=== PATIENT | male | born 1960 | race Caucasian/White ===

== ENCOUNTER 2023-02-09 11:45 | Inpatient (IN) | payer MEDICAID, SELFPAY ==
[2023-02-09] VITALS (16 sets, daily range): BP systolic 112–172; BP diastolic 78–119; PULSE 88–119; RESP 17–24; TEMP 36.2–36.6; O2SAT 53–100; BMI 15.8; BMI 14.5
--- NOTE | 2023-02-09 12:01 | RAD_ITS ---
INDICATION: injury EXAMINATION/TECHNIQUE: X-RAY - LEFT XR Wrist Min 3 Views 3 VIEWS COMPARISON: No relevant prior comparison study available FINDINGS: SOFT TISSUES: No soft tissue swelling or gas. No radiopaque foreign body. BONES/JOINTS: No acute fracture or subluxation.. Normal alignment. Preservation of the joint space.. No sclerotic or destructive changes observed. RAD/Wrist min 3 Views IMPRESSION: No evidence of acute fracture. Electronically Signed: Harjit Liz MD at 13:46 EST ,
--- NOTE | 2023-02-09 12:01 | CT_ITS ---
INDICATION: trauma EXAMINATION: CT CERVICAL SPINE - CT Spine Cervical W/O Contrast Injection TECHNIQUE: Helically acquired images were obtained of the cervical spine. 2D reformatted images were reviewed. A radiation dose optimization technique was used for this scan. IV Contrast dosage and agent: None. RADIATION DOSAGE (If Supplied By Facility): CTDIvol = ( 13.76 ) mGy, DLP = ( 277.43 ) mGycm COMPARISON: No relevant prior comparison study available FINDINGS: VERTEBRAE: Limited examination due to significant artifacts due to patient''s positioning. Sagittal images are degraded. No evidence of acute compression fracture deformity. The posterior elements appear to be intact. Exaggerated lordosis of the cervical spine. Mild anterolisthesis of C4 over C5. Normal craniocervical junction and cervicothoracic junction. DISCS and SPINAL CANAL: Degenerative changes of the atlantoaxial joint. Narrowing of the disc spaces of C4-C5, C5-C6 and C6-C7. No critical stenosis. NECK SOFT TISSUES: No prevertebral soft tissue swelling. Atherosclerotic calcifications of the carotid arteries. LUNG APICES: No evidence of pneumothorax. CT/Spine Cervical without Contras IMPRESSION: 1. Limited examination due to motion and artifacts. 2. No evidence of acute fracture. 3. Multilevel degenerative changes. 4. If symptoms persist, MRI of the cervical spine or follow-up examination is recommended. Electronically Signed: Harjit Liz MD at 13:22 EST ,
--- NOTE | 2023-02-09 12:01 | RAD_ITS ---
INDICATION: Altered mental status EXAMINATION/TECHNIQUE: X-RAY - XR Chest 1 View COMPARISON: No relevant prior comparison study available FINDINGS: LINES/DEVICES: None. LUNGS: The lungs are hyperinflated with COPD changes. No focal infiltrate is seen. No evidence of pleural effusions. MEDIASTINUM AND CARDIOVASCULAR STRUCTURES: Cardiac silhouette not enlarged. Central airways and mediastinal contour are unremarkable. BONES AND SOFT TISSUES: No demonstrated acute osseous changes. RAD/Chest 1 View (Portable) IMPRESSION: 1. COPD changes. 2. No radiographic evidence of acute cardiopulmonary disease. Electronically Signed: Harjit Liz MD at 13:39 EST ,
--- NOTE | 2023-02-09 12:01 | RAD_ITS ---
INDICATION: injury EXAMINATION/TECHNIQUE: X-RAY - RIGHT XR Foot Min 3 Views 3 VIEWS COMPARISON: No relevant prior comparison study available FINDINGS: SOFT TISSUES: No soft tissue swelling or gas. No radiopaque foreign body. BONES/JOINTS: No acute fracture or subluxation.. Normal alignment. Hammertoes deformity of the second toe. No sclerotic or destructive changes observed. RAD/Foot min 3 Views IMPRESSION: No evidence of acute fracture. Electronically Signed: Harjit Liz MD at 13:41 EST ,
--- NOTE | 2023-02-09 12:01 | CT_ITS ---
INDICATION: Altered mental status. EXAMINATION: CT BRAIN - CT Head or Brain W/O Contrast Injection TECHNIQUE: Multiple axial images were obtained of the head without intravenous contrast. A radiation dose optimization technique was used for this scan. IV Contrast dosage and agent: None. RADIATION DOSAGE (If Supplied By Facility): CTDIvol = ( 44.99 ) mGy, DLP = ( 829.85 ) mGycm COMPARISON: No relevant prior comparison study available FINDINGS: BRAIN PARENCHYMA: No intra- or extra-axial hemorrhage. No evidence of acute infarct. No intracranial mass or mass effect. There is preservation of the jimenez/white matter interface. There are periventricular deep white matter changes likely due to chronic microvascular disease. Posterior fossa structures are unremarkable. Atherosclerotic calcifications of the cavernous internal carotid and vertebral arteries. CSF SPACES: Appropriate for age. No hydrocephalus. Basal cisterns are patent. CALVARIUM, SKULL BASE, PARANASAL SINUSES AND MASTOID AIR CELLS: Clear. No discrete lytic or blastic abnormalities. ORBITS: Both globes, extraocular muscles, optic nerves and retrobulbar fat appear unremarkable. CT/Brain/Head without Contrast IMPRESSION: 1. No acute intracranial process. 2. Chronic involutional changes of the brain. Electronically Signed: Harjit Liz MD at 13:10 EST ,
--- NOTE | 2023-02-09 12:01 | RAD_ITS ---
INDICATION: trauma EXAMINATION/TECHNIQUE: X-RAY - XR Pelvis 1 or 2 Views COMPARISON: No relevant prior comparison study available FINDINGS: PELVIC BONES: No displaced fracture, destructive or sclerotic lesions. Note that overlapping bowel shadows may however obscure fine detail. The right sacroiliac joint is obscured by overlying bowel gas. No widening of the pubic symphysis. HIPS: The articular structures are unremarkable. No displaced fracture seen in this frontal view. SOFT TISSUES: No soft tissue swelling or gas. RAD/Pelvis 1 or 2 Views IMPRESSION: Limited exam due to overlying bowel gas. No evidence of displaced pelvic or hip fracture. Electronically Signed: Harjit Liz MD at 13:45 EST ,
--- NOTE | 2023-02-09 12:02 | EKG12_ITS ---
Test Reason : Blood Pressure : / mmHG Vent. Rate : 118 BPM Atrial Rate : 118 BPM P-R Int : 098 ms QRS Dur : 068 ms QT Int : 338 ms P-R-T Axes : 091 089 -34 degrees QTc Int : 473 ms Sinus tachycardia with short OK with Premature supraventricular complexes and with occasional Prematu re ventricular complexes ST & T wave abnormality, consider inferior ischemia Abnormal ECG Confirmed by DANNY JOLLEY, MARIANA ([id number]), editor index JOHN HANNON ([id number]) on 02/10/2023 11:06:52 AM Referred By: Confirmed By:MARIANA DELGADO MD
--- NOTE | 2023-02-09 12:13 | EDS_ITS ---
HPI History of Present Illness Chief Complaint: General Illness Informant: EMS Narrative Narrative: 62-year-old male was brought to the emergency department by EMS. No family is with him and the patient cannot have a coherent conversation with me. Therefore initial history was provided solely by EMS. They tell me that the called EMS. They report that he is an alcoholic and the told them that he fell a couple weeks ago. She has been trying to give him alcohol as she is afraid he is going through withdrawals but he is unable to drink. They note that the patient is very cachectic and has some mottling. They gave thiamine and some IV fluids in route and note that he was combative and they also gave some Versed. The patient's arrived tells me that 2 years ago he retired. Since then he really has not been up and moving much. She states over the past couple weeks he is gone from drinking a 30 pack of beer every 2 days to just a couple beers a day and over the past several days no beer. He gave up smoking because it was too much effort for him to roll his own cigarettes. She moved the mattress to the floor because he kept falling when he tried to ambulate. He has not been eating much. She tells me that family was over on and the tried to get him to come to the hospital then but he refused. She does not understand why he is not eating or getting up and moving. PFSH PFSH Medical History ETOH abuse Allergy/AdvReac Type Severity Reaction Status Date / Time No Known Allergies Allergy Verified 02/09/23 11:52 Social History Smoking Status: Unknown if ever smoked ROS ROS ED Review of Systems ROS Unobtainable: due to mental status EXAM Physical Exam Const Vital Signs: 02/09/23 11:46 02/09/23 11:52 02/09/23 12:10 Temperature 98 F Temperature Source Temporal Pulse Rate 88 Respiratory Rate 18 Respiratory Effort Labored Agonal Head [place] Blood Pressure 135/78 H Blood Pressure Mean 97 Pulse Ox 94 53 Oxygen Delivery Method Room Air Room Air Oxygen Flow Rate (L/min) 02/09/23 12:15 02/09/23 12:35 02/09/23 13:11 Temperature Temperature Source Pulse Rate 118 H 119 H 115 H Respiratory Rate 18 17 24 H Respiratory Effort Blood Pressure 149/81 H 171/119 H 141/84 H Blood Pressure Mean 103 136 103 Pulse Ox 93 99 97 Oxygen Delivery Method Non-Rebreather Nasal Cannula Nasal Cannula Oxygen Flow Rate (L/min) 15 4 4 02/09/23 13:40 Temperature 98 F Temperature Source Temporal Pulse Rate 115 H Respiratory Rate 24 H Respiratory Effort Blood Pressure 172/102 H Blood Pressure Mean 125 Pulse Ox 100 Oxygen Delivery Method Nasal Cannula Oxygen Flow Rate (L/min) 4 Positive well developed and cachectic General Appearance ED: well developed and cachectic Nutritional Appearance: cachectic HEENT Reports normocephalic, head/scalp atraumatic and dry mucous membranes HEENT Narrative: Patient has purpleish lips and nose Mouth ED: Yes dry mucous membranes Mouth: dry mucous membranes Eyes PERRL and EOMs intact bilaterally Neck no lymphadenopathy, supple and no JVD Resp normal respiratory effort and clear to auscultation bilaterally Cardio regular rate, regular rhythm and no murmurs Rate: tachycardic GI normal to inspection, nondistended, normoactive bowel sounds and non-tender Palpation: soft Back/Spine no CVA tenderness and normal ROM Back/Spine Narrative: Kyphotic back Extremity Extremity Narrative: Patient has erythema and swelling of the left hand and wrist. There is a forearm skin tear. He reports tenderness to palpation. He has bilateral foot and ankle swelling. Bilateral feet are cold to the touch. They are bluish- purple in color and improved with elevation. I suspect chronic peripheral vascular disease. There is mild mottling of the skin from the thigh inferiorly. He complains of tenderness to the right heel. There are early pressure changes to the skin of the right greater trochanter. Right medial proximal thigh/buttock has a small 5 mm round ulceration. No surrounding erythema. Bilateral feet are cold to the touch Neuro oriented x3 and CN's II-XII intact bilaterally Sensorium / Orientation: alert Motor Exam: strength 5/5 throughout Psych mental status grossly normal Mood & Affect: Negative for depressed or tearful Skin no rashes or lesions noted and no wounds MDM MDM MDM Narrative Medical decision making narrative: Differential is extremely broad. Including but not limited to altered mental status from alcohol withdrawal, stroke, head trauma. Significant electrolyte abnormalities and dehydration, oncologic processes fractures rhabdomyolysis Patient is severely cachectic and appears malnourished. Surprisingly blood work appears much better than he does. White count 7.5 hemoglobin 14.6 and a platelet count of 227. BMP with a sodium of 132 and potassium 3.3. BUN 13 creatinine 0.39. Lactic acid is normal at 1.6 with a glucose of 86. AST of 46 ALT of 38. Total CK is 304. Alcohol is negative. Urinalysis shows no overt infection. My independent interpretation of the chest x-ray is COPD but no acute findings My independent interpretation of the single view of the pelvis is no acute fracture My independent interpretation of the plain films of the right foot is no acute fracture soft tissue swelling noted My independent interpretation of the plain films of the left wrist is no acute fracture CT of the brain and cervical spine showed no acute fracture or hemorrhage Patient did receive thiamine by EMS we administered folic acid and IV fluids. Due to tachycardia with a history of alcoholism and recent me stopping alcohol patient received Ativan which also assisted in getting labs and imaging. He is sleeping but remains tachycardic. Patient is severely cachectic/malnourished. He is unable to relay his needs in any meaningful form of communication. He is curled up in a ball. He has pressure changes on his skin. Plan will be admission. I would anticipate long-term placement. History & Record Review Discussion w/independent historian: EMS personnel and Family Lab Data Attestation: I reviewed the patient's lab results. Labs: Laboratory Results - last 24 hr 02/09/23 12:30 WBC 7.5 RBC 4.47 L Hgb 14.6 Hct 43.1 MCV 96.4 H MCH 32.7 H MCHC 33.9 RDW Std Deviation 46.5 H RDW Coeff of Vince 13.0 Plt Count 227 MPV 12.4 H Immature Gran % (Auto) 0.300 Neut % (Auto) 89.1 H Lymph % (Auto) 7.0 L [place] % (Auto) 3.5 Eos % (Auto) 0.0 Baso % (Auto) 0.1 Absolute Neuts (auto) 6.7 Absolute Lymphs (auto) 0.52 L Nucleated RBC % 0 Differential Comment SCANNED PT 12.4 INR 0.9 APTT 32.1 Sodium 132 L Potassium 3.3 L Chloride 92 L Carbon Dioxide 34.0 H Anion Gap 6 BUN 13 Creatinine 0.39 L Estim Creat Clear Calc 120.71 Est GFR (MDRD) Af Amer 285 Est GFR (MDRD) Non-Af 235 BUN/Creatinine Ratio 33.2 H Glucose 86 Lactic Acid 1.6 Calcium 7.6 L Magnesium 1.9 Total Bilirubin 0.40 Direct Bilirubin 0.15 AST 46 H ALT 38 Alkaline Phosphatase 110 Total Creatine Kinase 304 Troponin I High Sens 18 Total Protein 5.4 L Albumin 2.4 L Globulin 3.0 Lipase 46 Urine Color Yellow Urine Clarity Clear Urine pH 6.0 Ur Specific [place] 1.020 Urine Protein 15 H Urine Glucose (UA) Normal Urine Ketones Negative Urine Occult Blood 25 H Urine Nitrite Negative Urine Bilirubin Negative Urine Urobilinogen 1 H Ur Leukocyte Esterase Negative Urine RBC 0-5 SEEN Urine WBC 0 SEEN Ur Squamous Epith Cells 0 SEEN Urine Bacteria 0 SEEN Urine Mucus 0 SEEN Ethyl Alcohol < 3.0 Radiography Diagnostic Testing: Clinical Impression(s) from Imaging Studies Brain CT 02/09/23 12:01 IMPRESSION: 1. No acute intracranial process. 2. Chronic involutional changes of the brain. Electronically Signed: Harjit Liz MD at 13:10 EST Reading Location ID and State: [facility] / [place] Tel , Service support , Cervical Spine CT 02/09/23 12:01 IMPRESSION: 1. Limited examination due to motion and artifacts. 2. No evidence of acute fracture. 3. Multilevel degenerative changes. 4. If symptoms persist, MRI of the cervical spine or follow-up examination is recommended. Electronically Signed: Harjit Liz MD at 13:22 EST Reading Location ID and State: [facility] / [place] Tel , Service support , Chest X-Ray 02/09/23 12:01 IMPRESSION: 1. COPD changes. 2. No radiographic evidence of acute cardiopulmonary disease. Electronically Signed: Harjit Liz MD at 13:39 EST Reading Location ID and State: [facility] / [place] Tel , Service support , Foot X-Ray 02/09/23 12:01 IMPRESSION: No evidence of acute fracture. Electronically Signed: Harjit Liz MD at 13:41 EST , Pelvis X-Ray 02/09/23 12:01 IMPRESSION: Limited exam due to overlying bowel gas. No evidence of displaced pelvic or hip fracture. Electronically Signed: Harjit Liz MD at 13:45 EST , Wrist X-Ray 02/09/23 12:01 IMPRESSION: No evidence of acute fracture. Electronically Signed: Harjit Liz MD at 13:46 EST , EKG Initial EKG: Attestation: I personally reviewed and interpreted this EKG as follows: Comments: Sinus tachycardia with a ventricular rate of 118 bpm. poor quality precludes full interpretation Management Discussion w/another healthcare provider: Hospitalist Discharge Plan Dx/Rx/DC Orders Clinical Impression: Protein-calorie malnutrition, severe, Adult failure to thrive, Bedsores, Acute alteration in mental status, Alcoholism, Tachycardia Disposition Disposition: Acute Care [facility]
[2023-02-09] MEDS: Folic Acid 1 MG in 0.9% Normal Saline (50mL Bag) 50 ML 200 MG IV (12:31)
[2023-02-09] MEDS: 0.9% Normal Saline (1000mL) 1,000 ML 250 ML IV ×3 (12:31→21:51)
[2023-02-09] MEDS: LORazepam 2 MG/ML Syringe 1 MG IV (12:31)
[2023-02-09 12:41] LABS: Bacteria 0 SEEN /hpf (None Seen); Mucous, Urine 0 SEEN /hpf (<or=2+); Squamous Epithelial Cells - UA 0 SEEN /hpf (0-5); White Blood Cells 0 SEEN /hpf (0-5)
[2023-02-09 12:45] LABS: Color, Urine Yellow (Yellow); Glucose, Dipstick Normal (Normal); Ketone-Dipstick Negative (Negative); Leukocyte Esterase-Dipstick Negative /ul (Negative); Nitrite-Dipstick Negative (Negative); Occult Blood-Urine 25 /ul (Negative); Protein-Dipstick 15 mg/dl (Negative); Urine Bilirubin Dipstick Negative (Negative); Urine Clarity Clear (Clear); Urine Urobilinogen 1 mg/dl (Normal)
[2023-02-09 12:51] LABS: Absolute Lymphocyte Count 0.52 X10^3/uL (0.83-4.51); Absolute Neutrophil Count 6.7 X10^3/uL (2.0-7.7); Basophil# 0.01 X10^3/uL; Basophil% 0.1 % (0-1); Hematocrit 43.1 % (40-54); Hemoglobin 14.6 g/dL (13.0-16.5); Lymphocyte # 0.52 X10^3/ul (0.83-4.51); Mean Corp Hgb Conc 33.9 g/dL (32-36); Mean Corpuscular Hgb 32.7 pg (27.0-32.0); Mean Corpuscular Volume 96.4 fL (80-94); Mean Platelet Vol. 12.4 fl (6.2-12.0); Monocyte# 0.26 X10^3/uL; Monocyte% 3.5 % (0-10); NRBC Flagged by Analyzer 0 % (0-5); Neutrophil # 6.65 X10^3/uL (2.7-7.7); Neutrophil % 89.1 % (47-70); POSITIVE DIFFERENTIAL YES; Platelet Count 227 K/mm3 (150-450); RBC Distribution Width SD 46.5 fl (35.1-43.9); Red Blood Cells-Urine 0-5 SEEN /hpf (0-5); Red Blood Count 4.47 M/mm3 (4.6-6.2); White Blood Count 7.5 K/mm3 (4.4-11.0)
[2023-02-09 12:54] LABS: Differential Indicated SCAN CRITERIA MET
[2023-02-09 12:58] LABS: International Normalized Ratio 0.9; Prothrombin Time (Protime)PT. 12.4 SECONDS (11.7-14.9)
[2023-02-09 12:59] LABS: Partial Thromboplast Time 32.1 Seconds (24.1-36.2)
[2023-02-09 13:08] LABS: Alcohol, Blood (Medical)-Serum < 3.0 mg/dL
[2023-02-09 13:11] LABS: AST(SGOT) 46 U/L (15-37); Alanine Aminotransfer ALT/SGPT 38 U/L (16-61); Albumin, Serum 2.4 g/dL (3.2-5.0); Alkaline Phosphatase 110 U/L (45-117); Anion Gap 6 (5-15); BUN 13 mg/dL (7-18); BUN/Creat Ratio 33.2 RATIO (10-20); Bilirubin, Direct 0.15 mg/dL (0.00-0.30); CPK Total, Creatine Kinase 304 U/L (39-308); Calcium,Total 7.6 mg/dL (8.5-10.1); Chloride 92 mmol/L (98-107); Creatinine, Serum 0.39 mg/dL (0.70-1.30); EST Glomerular Filtration Rate 235 mL/min (>60); Est Glom Filt Rate - Afr Amer 285 mL/min (>60); Estimated Creatinine Clearance 120.71 ml/min; Glucose 86 mg/dL (74-106); Lipase 46 U/L (13-75); Magnesium 1.9 mg/dL (1.6-2.6); Potassium 3.3 mmol/L (3.5-5.1); Protein, Total 5.4 g/dL (6.4-8.2); Sodium Level 132 mmol/L (136-145); Troponin-I HS 18 pg/mL (3.0-78.0)
[2023-02-09 13:14] LABS: Lactic Acid 1.6 mmol/L (0.4-1.9)
[2023-02-09 13:31] LABS: Differential Comment SCANNED
--- NOTE | 2023-02-09 14:08 | PCM.HP.STD ---
HPI - General General Date of Admission: 02/09/23 Date of Service: 02/09/23 Chief Complaint: Severe cachexia, weakness, altered mental status HPI Narrative LAVON VILLAGOMEZ, is a 62 M who presented to [facility] ED on 02/09/2023 via EMS for worsening weakness and confusion at home. Patient seen at bedside in the ED, present. Patient is extremely cachectic appearing on exam. Was laying on his side in bed, very somnolent with snoring, not following commands but appears comfortable. Patient's is very pleasant, had extensive conversation with her at the bedside. 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 He was a heavy alcohol drinker for the last 40 years or so, would drink 20-30 beers daily after he retired and eat very little. He also would hardly get out of his chair or out of bed. He is very stubborn and resists any attempts at medical intervention. noticed that patient has been getting much thinner and progressively weaker over the last 6 months to year especially. It recently reached a point where he was falling often at home, and she put his mattress on the ground given his severe weakness. She states that he was able to eat some of his things getting dinner and his mental status was fairly normal at that time. However, since then he has become more altered and fatigued and she felt like it was finally time to call EMS to bring him in because he would not resist being brought to the hospital. states that patient has hardly drank any alcohol over the past few weeks because of his weakness. He also has an extensive smoking history but has been too weak to smoke cigarettes recently as well. [facility] Medical History ETOH abuse Allergy/AdvReac Type Severity Reaction Status Date / Time No Known Allergies Allergy Verified 02/09/23 11:52 Social History Smoking Status: Unknown if ever smoked ROS Review of Systems ROS Unobtainable: due to mental status Vital Signs Vital Signs Vital Signs: 02/09/23 11:46 02/09/23 11:52 02/09/23 12:10 Temperature 98 F Temperature Source Temporal Pulse Rate 88 Respiratory Rate 18 Respiratory Effort Labored Agonal Head [place] Blood Pressure 135/78 H Blood Pressure Mean 97 Pulse Ox 94 53 Oxygen Delivery Method Room Air Room Air Oxygen Flow Rate (L/min) 02/09/23 12:15 02/09/23 12:35 02/09/23 13:11 Temperature Temperature Source Pulse Rate 118 H 119 H 115 H Respiratory Rate 18 17 24 H Respiratory Effort Blood Pressure 149/81 H 171/119 H 141/84 H Blood Pressure Mean 103 136 103 Pulse Ox 93 99 97 Oxygen Delivery Method Non-Rebreather Nasal Cannula Nasal Cannula Oxygen Flow Rate (L/min) 15 4 4 02/09/23 13:40 Temperature 98 F Temperature Source Temporal Pulse Rate 115 H Respiratory Rate 24 H Respiratory Effort Blood Pressure 172/102 H Blood Pressure Mean 125 Pulse Ox 100 Oxygen Delivery Method Nasal Cannula Oxygen Flow Rate (L/min) 4 Weight Weight: 44.6 kg Body Mass Index (BMI) 15.8 Physical Exam Const Constitutional Narrative: Extremely cachectic appearing, somnolent, not following commands. HEENT normocephalic, head/scalp atraumatic, hearing grossly normal bilaterally, nasal mucous membranes and turbinates normal and moist oral mucous membranes Lymph Lymphatic: no lymphadenopathy noted Resp Resp Narrative: Mildly decreased breath sounds throughout bilaterally. Increased work of breathing noted on 5 L nasal cannula, oxygen saturations in the low 90s. No wheezing or crackles noted. Cardio no murmurs and peripheral pulses 2+ throughout Cardio Narrative: Sinus tachycardia. GI normal to inspection, nondistended, normoactive bowel sounds, soft to palpation, non-tender and non-distended Extremity Extremity Narrative: +3-4 pitting edema in left lower extremity up to the mid thigh, right lower extremity appears grossly normal. Skin Skin Narrative: Severe left hand erythema. Bruises throughout arms and legs in various stages of healing. Results Lab / Micro Data 02/09/23 12:30 02/09/23 12:30 Labs: Laboratory Results - last 24 hr 02/09/23 12:30: WBC 7.5, RBC 4.47 L, Hgb 14.6, Hct 43.1, MCV 96.4 H, MCH 32.7 H, MCHC 33.9, RDW Std Deviation 46.5 H, RDW Coeff of Vince 13.0, Plt Count 227, MPV 12.4 H, Immature Gran % (Auto) 0.300, Neut % (Auto) 89.1 H, Lymph % (Auto) 7.0 L, [place] % (Auto) 3.5, Eos % (Auto) 0.0, Baso % (Auto) 0.1, Absolute Neuts (auto) 6.7, Absolute Lymphs (auto) 0.52 L, Nucleated RBC % 0, Differential Comment SCANNED, PT 12.4, INR 0.9, APTT 32.1, Sodium 132 L, Potassium 3.3 L, Chloride 92 L, Carbon Dioxide 34.0 H, Anion Gap 6, BUN 13, Creatinine 0.39 L, Estim Creat Clear Calc 120.71, Est GFR (MDRD) Af Amer 285, Est GFR (MDRD) Non-Af 235, BUN/Creatinine Ratio 33.2 H, Glucose 86, Lactic Acid 1.6, Calcium 7.6 L, Magnesium 1.9, Total Bilirubin 0.40, Direct Bilirubin 0.15, AST 46 H, ALT 38, Alkaline Phosphatase 110, Total Creatine Kinase 304, Troponin I High Sens 18, Total Protein 5.4 L, Albumin 2.4 L, Globulin 3.0, Lipase 46, Urine Color Yellow, Urine Clarity Clear, Urine pH 6.0, Ur Specific [place] 1.020, Urine Protein 15 H, Urine Glucose (UA) Normal, Urine Ketones Negative, Urine Occult Blood 25 H, Urine Nitrite Negative, Urine Bilirubin Negative, Urine Urobilinogen 1 H, Ur Leukocyte Esterase Negative, Urine RBC 0-5 SEEN, Urine WBC 0 SEEN, Ur Squamous Epith Cells 0 SEEN, Urine Bacteria 0 SEEN, Urine Mucus 0 SEEN, Ethyl Alcohol < 3.0 Imagaing Radiology Impression Brain CT 02/09/23 12:01 IMPRESSION: 1. No acute intracranial process. 2. Chronic involutional changes of the brain. Electronically Signed: Harjit Liz MD at 13:10 EST , Cervical Spine CT 02/09/23 12:01 IMPRESSION: 1. Limited examination due to motion and artifacts. 2. No evidence of acute fracture. 3. Multilevel degenerative changes. 4. If symptoms persist, MRI of the cervical spine or follow-up examination is recommended. Electronically Signed: Harjit Liz MD at 13:22 EST , Chest X-Ray 02/09/23 12:01 IMPRESSION: 1. COPD changes. 2. No radiographic evidence of acute cardiopulmonary disease. Electronically Signed: Harjit Liz MD at 13:39 EST , Foot X-Ray 02/09/23 12:01 IMPRESSION: No evidence of acute fracture. Electronically Signed: Harjit Liz MD at 13:41 EST , Pelvis X-Ray 02/09/23 12:01 IMPRESSION: Limited exam due to overlying bowel gas. No evidence of displaced pelvic or hip fracture. Electronically Signed: Harjit Liz MD at 13:45 EST , Wrist X-Ray 02/09/23 12:01 IMPRESSION: No evidence of acute fracture. Electronically Signed: Harjit Liz MD at 13:46 EST , Assessment & Plan Assessment/Plan (1) Adult failure to thrive: (2) Acute alteration in mental status: PLAN: Plan Patient is a 62-year-old male who presented to [facility] ED on 02/09/2023 via EMS with altered mental status and worsening weakness. 1. Severe cachexia and malnourishment, debility BMI 14.5 on admit. Patient appears severely cachectic and malnourished, is extremely thin and chronically ill-appearing. Likely multifactorial from very poor self-care, poor p.o. intake with previous alcohol abuse. Albumin 2.0, mild hyponatremia and hypokalemia as noted below, otherwise labs surprisingly are fairly benign. CT chest/abdomen/pelvis with IV contrast on admit shows suspected pneumonia and fatty liver disease as noted below, no overt findings consistent with malignancy. ? Admit under inpatient status to [facility]. Palliative care/hospice consulted. Nutrition consulted. PT/OT/case management consulted. Follow-up a.m. labs. 2. Acute metabolic encephalopathy Unclear etiology. Initial concern was for alcohol withdrawal, however per patient has hardly drank alcohol over the last 1 to 2 weeks. Was given Versed by EMS and Ativan in the ED, has been very somnolent since then. CT head negative. No concerning lab findings. ? Monitor closely. Avoid sedating medications. No further labs or imaging workup at this time. 3. Acute hypoxia, history of COPD, left lower extremity swelling Patient with new hypoxia requiring up to 12 L nasal cannula, mildly increased respiratory rate, sinus tachycardia, and fairly significant left lower extremity swelling on admit. PE ruled out on CTA chest. CT chest did show if symptoms changes with a lingular consolidation consistent with pneumonia. Bicarb 34 on admit with no anion gap noted, presume patient is a chronic retainer with history of COPD. WBC count normal, patient afebrile to this point. ? Will treat empirically for pneumonia with ceftriaxone and azithromycin. Sputum culture, respiratory PCR panel ordered. Venous duplex ultrasound of left lower extremity ordered to rule out DVT. Follow-up a.m. labs. Wean supplemental oxygen as able. 4. Hyponatremia Sodium 132 on admit. Likely due to poor p.o. intake. No baseline available. Very low concern that hyponatremia is contributing to patient's altered mentation. ? Monitor sodium daily. 5. Hypokalemia ? Potassium 3.3 on admit. Likely due to poor p.o. intake versus GI losses. Replete as needed. 6. History of alcohol abuse, hepatic steatosis reports history of heavy drinking for over [address] abdomen pelvis on admit shows enlarged fatty infiltrated liver. Liver enzymes essentially benign, INR 0.9. Very low concern for alcohol withdrawal as noted above. ? No need to monitor LFTs further. 7. History of cigarette smoking ? Extensive smoking history per patient's . Has smoked very little recently due to his medical state. No need for nicotine replacement therapy at this time. DVT prophylaxis: Lovenox CODE STATUS: DNR CCA, DO NOT INTUBATE Expected disposition: TBD Total clinical time spent by myself addressing the patient's medical issues, reviewing all the data, and collaborating with patient's care team: 75 minutes. Charges/Coding Visit Charges Inpatient E&M: 92030 Init Hosp L3
--- NOTE | 2023-02-09 15:12 | EKG12_ITS ---
Test Reason : FIB/FLUTTER Blood Pressure : / mmHG Vent. Rate : 104 BPM Atrial Rate : 104 BPM P-R Int : 116 ms QRS Dur : 080 ms QT Int : 358 ms P-R-T Axes : 083 090 028 degrees QTc Int : 470 ms Sinus tachycardia Rightward axis Nonspecific T wave abnormality Abnormal ECG When compared with ECG of 09-FEB-2023 12:24, MANUAL COMPARISON REQUIRED, DATA IS UNCONFIRMED Confirmed by DANNY JOLLEY, MARIANA ([id number]), publication editor GAGAN MANRIQUEZ ([id number]) on 02/11/2023 9:25:10 AM Referred By: AMAIRANI Confirmed By:MARIANA DELGADO MD
--- NOTE | 2023-02-09 15:47 | NURSING ---
History was completed with the answering questions.
[2023-02-09] MEDS: 0.9% Saline Lock 10 ML Syringe IV (16:02)
--- NOTE | 2023-02-09 18:19 | CT_ITS ---
STUDY: CTA CHEST REASON FOR EXAM: Male, 62 years old. Altered mental status, fall 2 weeks ago RADIATION DOSAGE (If Supplied By Facility): CTDIvol = ( 10.65 ) mGy, DLP = ( 593.85 ) mGycm TECHNIQUE: The examination was performed with the intravenous administration of 100mL Isovue-370. Post-processing of the angiographic images was performed, with multiplanar reformation and 3D reconstruction. Individualized dose optimization techniques were used for this CT. COMPARISON: None. FINDINGS: Normal enhancement of the main pulmonary artery and right and left pulmonary arteries. Normal enhancement of the bilateral peripheral pulmonary arteries. There is no demonstrated pulmonary embolism. 3.3 cm ectasia ascending aorta. There is no demonstrated aortic dissection. Normal heart and pericardium. Normal mediastinum. Normal hilar regions. Marked hyperinflation with diffuse emphysematous changes. Small consolidation inferior lingula. No pleural effusions. Normal chest wall structures. No acute or aggressive osseous abnormality. Upper abdominal ascites. CT/CTA Chest W/WO Contrast IMPRESSION: Normal CTA chest examination, without a demonstrated pulmonary embolism or arterial dissection. Emphysematous changes with lingular consolidation consistent with pneumonia. Recommend short-term follow-up to complete resolution. Ascites. Electronically Signed: Tone Brennan MD at 20:39 EST ,
--- NOTE | 2023-02-09 18:19 | CT_ITS ---
STUDY: CT ABDOMEN AND PELVIS WITH CONTRAST REASON FOR EXAM: Male, 62 years old. r/o intraabdominal pathology RADIATION DOSAGE (If Supplied By Facility): CTDIvol = ( 10.65 ) mGy, DLP = ( 593.85 ) mGycm TECHNIQUE: Transaxial images were obtained from the dome of the diaphragm to the symphysis pubis without oral contrast. IV 100mL Isovue-370 was administered. Sagittal and coronal images were reconstructed. Individualized dose optimization techniques were used for this CT. COMPARISON: None. FINDINGS: Small spiculated nodular density in the lingula of uncertain etiology possibly neoplastic.. There is also mild atelectasis at the left base. The visualized portions of the heart are within normal limits. Liver is diffusely enlarged and fatty infiltrated without mass or bile duct dilatation. Contracted thick-walled gallbladder without calcified stones possibly physiologic.. Normal spleen. Normal pancreas. Normal bilateral adrenal glands. Normal right kidney. Normal left kidney. Examination of the bowel is limited due to lack of utilization of oral contrast and paucity of intraperitoneal fat Normal visualized stomach. No evidence for small bowel obstruction however there appear to be multiple loops of bowel demonstrating thickening of folds consistent with nonspecific enteritis.. Normal colon. No evidence for acute appendicitis Atherosclerotic changes of the aorta without evidence for aneurysm. Normal inferior vena cava. Normal retroperitoneum. There is diffuse mesenteric edema and edematous changes in the subcutaneous fat consistent with nonspecific anasarca. There is air seen within the bladder due to indwelling Godoy catheter placement Normal abdominal wall. Lumbar spine demonstrates scoliosis and severe degenerative changes. CT/Abdomen/Pelvis W IV Cont ONLY IMPRESSION: Enlarged fatty infiltrated liver. Findings which may be consistent with nonspecific enteritis No evidence for small bowel obstruction or other acute abnormality.. Incidental finding of spiculated nodular density in the lingula of uncertain etiology. Cannot exclude neoplastic lesion. Dedicated CT of the chest recommended for further evaluation Electronically Signed: Moise Blas MD at 20:33 EST ,
--- NOTE | 2023-02-09 20:16 | NURSING ---
Hospice nurse here to meet with . this rn attempted to call . The message said the number is no longer working or has been disconnected.
--- NOTE | 2023-02-09 20:35 | NURSING ---
family did not show up for the hospice meeting. phone number not working. Dispatch called and will make a visit to have family call in or come to hospice
--- NOTE | 2023-02-09 21:30 | NURSING ---
called in said she didnt know about the meeting. chandrika the said she took tylenol pm and will not be able to come in. Pt gave us a new phone number [phone]. registration contacted to change number
[2023-02-09] MEDS: Ceftriaxone 1 GM/50 ML BAG IV (21:52)
[2023-02-09] MEDS: Azithromycin 500 MG in Dextrose 5%-Water (250mL Bag) 250 ML 250 MG IV (22:42)
[2023-02-10] VITALS (11 sets, daily range): BP systolic 96–142; BP diastolic 62–96; PULSE 75–97; RESP 18–22; TEMP 36.2–37.2; O2SAT 95–100
[2023-02-10] MEDS: 0.9% Normal Saline (1000mL) 1,000 ML 250 ML IV ×3 (03:20→10:26)
[2023-02-10] MEDS: Enoxaparin 40 MG/0.4 ML Syringe SC (10:25)
[2023-02-10] MEDS: 0.9% Saline Lock 10 ML Syringe IV (10:26)
--- NOTE | 2023-02-10 10:59 | CASEMGMT ---
Social Work SW?to room to meet with patient and family for initial transition planning/care coordination?assessment.?Pt sleeping in bed and not arousing. Family requesting to meet outside of pt's room. SW?introduced self and role at [facility].? Care providers, pharmacy, and demographics verified. PCP: Pt's reports in the 45 years that they have been , pt has never seen a physician Specialists: Pt saw a chiropractor a few times through the years but not recently Preferred Pharmacy: pt takes no medications and has no pharmacy preference Insurance: [facility] Prescription Benefit:? yes Living Will/HPOA:? no LNOK: Yany Doan. Brother Nick Doan. Son lives in the other side of the house (apartment) Living Arrangements: Pt lives in a one story home with 3 steps to enter. Pt retired 3 years ago and at that time pt choose to do nothing. Pt stays in home and sits in the chair and watches TV. Pt had been able to care for himself but for the last 2 months pt's assisted with ADLS. Pt completes all IADLS. Transportation:?Pt let his drivers license in October and has no ambition to drive any longer. can provide transportation DME: ? none HHC/SNF: none Mental Health: SW inquired about depression or mental health concerns. Pt with no diagnosis and states pt have never been willing to talk about his feelings so uncertain if he is depressed. Pt's does state that he will go for periods of not talking to her so is wondering if pt not talking to doctors or nurses while here may be behavioral. PLAN: Pt and family are meeting with hospice today at 1130. Pts feels she will be able to take pt home and provide needed care. Per pt's , pt is unwilling to have medical care and would be unwilling to go to a facility. Physcian updated. Emotional support provided to pt . SW will await outcome of hospice meeting. HI Mcgraw
--- NOTE | 2023-02-10 11:53 | CHAPLAIN ---
Type of Pastoral Visit ___ Initial Visit ___ Follow-up Visit ___ On-call Visit ___ General Patient Visit ___ Spiritual Assessment ___ Family Conference ___ Bereavement ___ Rapid Response ___ Code Blue ___ Other (describe below) Pastoral Care Referral From ___ Patient ___ Family ___ Nurse ___ Physician ___ Marble Polisher Hand ___ Shake Splitter ___ Other (describe below) Sacrament/Intervention ___ Active listening ___ Anointing ___ Anglican ___ Bereavement ___ Communion ___ Arlene exploration ___ ___ Life review ___ Prayer ___ Reconciliation ___ Sacrament of Sick ___ Supportive presence ___ Wedding ___ Other (describe below) Pastoral Comments patient is curled up in bed and sleeping soundly; family members are not in the room although coats, belongings, and food are in the room; left a calling card
--- NOTE | 2023-02-10 13:13 | CASEMGMT ---
Social Work SW spoke with Coco from [facility]. Coco met with pt and spouse. Pt did not interact with Coco. signed papers for hospice services. DME will need set up in the home. Plan is for home tomorrow with hospice services. HI Mcgraw
--- NOTE | 2023-02-10 15:28 | PN_ITS ---
Subjective Subjective Patient seen and examined. He was admitted with a complaint of severe weakness, cachexia and confusion. 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 Since long-term he has been somewhat stated at home doing nothing and that gradually lost weight. said he drank about 20-30 beers daily. Ongoing for about 2 weeks prior to this admission. He has been getting progressively weak and the is unable to take care of him. He had become more confused so she brought him into the hospital. Patient is very weak and cachectic. He is not really communicative. Unable to do review of systems as he is not really communicating with me. Family has set up a meeting with hospice this afternoon. He has remained hemodynamically sta ble. Objective Data Objective Data Vital Signs: Vital Signs Temp Pulse Resp BP Pulse Ox O2 Del Method O2 Flow Rate 97.3 F L 85 20 H 96/62 99 Nasal Cannula 2 02/10/23 15:28 02/10/23 15:28 02/10/23 15:28 02/10/23 15:28 02/10/23 15:28 02/10/23 15:28 02/10/23 15:28 FiO2 40 02/09/23 23:53 Oxygen Flow Rate (L/min) 2 Oxygen Delivery Method Nasal Cannula Weight: 89 lb 15.178 oz Body Mass Index (BMI) 14.5 Intake & Output: Intake and Output for Last 24 Hours 02/08/23 02/09/23 02/10/23 23:59 23:59 23:59 Intake Total 2367.7 / 2367.7 3145.84 / 3145.84 Output Total 400 / 400 200 / 200 Balance 1967.7 / 1967.7 2945.84 / 2945.84 Medical Nutrition Assessment Dietitian: Malnutrition Criteria Met Start: 02/10/23 13:39 Freq: Status: Active Protocol: Document 02/10/23 13:39 AG (Rec: 02/10/23 13:39 AG Desktop) Nutrition Malnutrition Evidence of Malnutrition Exists Yes Malnutrition (severe): Chronic Evidenced By Suboptimal Energy Intake ( Severe),Weight Loss (Severe), Physical Changes (Severe) Clinical Problem Chronic Disease or Condition Related Malnutrition Etiology severe, chronic malnutrition related to inadequate energy intake Signs/Symptoms as evidenced by unintentional 31% wt loss, estimated PO intake meeting <75 % of estimated energy needs > 3 months, severe muscle wasting/ fat loss evident per physical exam in orbital, clavicle, and acromion areas, BMI 14.5 Status Active Problem Recommendation Dietitian Recommendations/Changes regular diet as tolerated Lab / Micro Data 02/09/23 12:30 02/09/23 12:30 Radiography Diagnostic Testing: Radiology Impression Abdomen/Pelvis CT 02/09/23 18:19 IMPRESSION: Enlarged fatty infiltrated liver. Findings which may be consistent with nonspecific enteritis No evidence for small bowel obstruction or other acute abnormality.. Incidental finding of spiculated nodular density in the lingula of uncertain etiology. Cannot exclude neoplastic lesion. Dedicated CT of the chest recommended for further evaluation Electronically Signed: Moise Blas MD at 20:33 EST , Chest CTA 02/09/23 18:19 IMPRESSION: Normal CTA chest examination, without a demonstrated pulmonary embolism or arterial dissection. Emphysematous changes with lingular consolidation consistent with pneumonia. Recommend short-term follow-up to complete resolution. Ascites. Electronically Signed: Tone Brennan MD at 20:39 EST , Physical Exam Const Constitutional Narrative: patient very frail, weak, cachectic, not communicative. HEENT normocephalic Mouth: dry mucous membranes Eyes PERRL and EOMs intact bilaterally Neck no lymphadenopathy and supple Lymph Lymphatic: no lymphadenopathy noted Resp Resp Narrative: diminished breath sounds bibasally, no wheezes or crackles. On room air. Cardio regular rate, regular rhythm, S1 normal heart sound and S2 normal heart sound GI normal to inspection, nondistended, normoactive bowel sounds, soft to palpation, non-tender and non-distended Extremity Extremity Narrative: LLE erythematous, edematous, seeping. Bilateral UE erythematous and seeping also. Skin Skin Narrative: erythematous on RLE and upper extremities. Neuro CN's II-XII intact bilaterally and no focal motor deficits Neuro Narrative: very frail, cachectic and weak. Motor Exam: general weakness Assessment & Plan Assessment/Plan (1) Acute alteration in mental status: (2) Adult failure to thrive: (3) Protein-calorie malnutrition, severe: PLAN: Plan #Debility with failure to thrive * Patient severely malnourished. BMI was 2014.5. This is likely multifactorial from his chronic alcohol abuse and general poor health. * CT of the chest abdomen and pelvis with contrast was concerning for pneumonia with fatty liver disease. * said he had not drank for about 2 weeks prior to this admission. Usually he drinks about a 20-30 beers a day. * CT of the brain showed no acute intracranial pathology. * Family opted for hospice evaluation. Hospice reviewed patient today he is to be discharged home with hospice tomorrow. #Hypoxia * Patient requiring 6 L of oxygen. He does have a history of COPD and chest imaging was concerning for pneumonia. * Being treated empirically for pneumonia on IV ceftriaxone and azithromycin. Duplex of the left lower extremity showed no evidence of DVT. * Continue antibiotics for now. Being discharged home with hospice tomorrow. #Hyponatremia and hypokalemia: Patient gently hydrated with IV fluids. Sodium was 130 on admission. Potassium was 3.3 and this has been replaced. #History of chronic alcohol abuse with fatty liver * Patient drank about 30 cans of beer daily for [address] abdomen and pelvis showed enlarged fatty liver. * Last drink was about 2 weeks prior to admission so low risk for acute alcohol withdrawal. * Will monitor. #History of nicotine dependence: Counseled to quit. states he has not smoked recently because he has been deteriorating. DVT prophylaxis: lovenox. Disposition: To be discharged home with home hospice tomorrow. Charges/Coding Visit Charges Inpatient E&M: 61496 Subs Hosp L3
[2023-02-10] MEDS: Ceftriaxone 1 GM/50 ML BAG IV (22:02)
[2023-02-10] MEDS: Azithromycin 500 MG in Dextrose 5%-Water (250mL Bag) 250 ML 250 MG IV (22:44)
[2023-02-11] VITALS (8 sets, daily range): BP systolic 112–117; BP diastolic 64–68; PULSE 66–67; RESP 18; TEMP 36.2–36.6; O2SAT 83–100
[2023-02-11] MEDS: Enoxaparin 40 MG/0.4 ML Syringe SC (09:18)
--- NOTE | 2023-02-11 09:23 | NURSING ---
pt refused to let this nurse clean his mouth that had dried crusted food to his lower lip. He also refused this nurse to help blow his nose as there is mod amt of snot sitting in his nares. spo2 100% on 3L. This RN weaned him down to 2L then 1L and he was 100% on both of those. Spo2 is 91% at present on RA.
--- NOTE | 2023-02-11 11:37 | DCINST_ITS ---
Discharge Instructions Diet Discharge Diet: No restrictions Activity Discharge Activity: Return to Normal Activity Weight Bearing Status: Weight bearing as tolerated Dressing / Incision Call your doctor if you observe: Fever of 101 or Higher, Shortness of breath, Dizziness, Swelling in the ankles, Chest pain and Increased palpitations (irregular heartbeat) Follow Up Care Test Results: Test results from this visit will be discussed in further detail at your follow- up appointment, if applicable. Discharge Plan Admission Admit Date/Time: 02/09/23 14:41 Primary Reason for Your Visit: severe malnutrition, debility and failure to thrive Attending Provider: Sharona Patten Primary Care Provider: Care Physician,No Primary Consulting Providers: Adolfo Lopez; Carolyn Winston; Caridad Orozco; Larissa Louie [employer] ARCHITECT; Joni Turner Discharge Orders/Prescriptions Referrals / Follow Up: Care Physician,No Primary [Primary Care Provider] - NOT,DEFINED [Non-Staff] - Disposition Disposition (needs filled in before D/C Order can be placed): Hospice in Home
--- NOTE | 2023-02-11 11:38 | DS.PCM_ITS ---
Providers Date of Admission: 02/09/23 Date of Discharge: 02/11/23 Primary Care Physician: Joi Primary Care Phys Consultations 02/09/23 15:55 Consult: Hospice / Palliative Care Routine Consulting Provider: [facility] Reason for Consult: very severe cachexia EMERGENT Consult: No MD Notified: Yes Date Notified: 02/09/23 Time Notified: 17:02 Method of Notification: Answering Service Reason For Visit: ALATERED MENTAL STATUS, SEVERE CACHEXIA Diagnosis Discharge Diagnosis (1) Acute alteration in mental status: Status: Acute Code(s): R41.82 - Altered mental status, unspecified (2) Adult failure to thrive: Status: Acute Code(s): R62.7 - Adult failure to thrive (3) Protein-calorie malnutrition, severe: Status: Acute Code(s): E43 - Unspecified severe protein-calorie malnutrition Plan #Debility with failure to thrive * Patient severely malnourished. BMI was 2014.5. This is likely multifactorial from his chronic alcohol abuse and general poor health. * CT of the chest abdomen and pelvis with contrast was concerning for pneumonia with fatty liver disease. * said he had not drank for about 2 weeks prior to this admission. Usually he drinks about a 20-30 beers a day. * CT of the brain showed no acute intracranial pathology. * Family opted for hospice evaluation. Hospice reviewed patient today he is to be discharged home with hospice tomorrow. #Hypoxia * Patient requiring 6 L of oxygen. He does have a history of COPD and chest imaging was concerning for pneumonia. * Being treated empirically for pneumonia on IV ceftriaxone and azithromycin. Duplex of the left lower extremity showed no evidence of DVT. * Continue antibiotics for now. Being discharged home with hospice tomorrow. #Hyponatremia and hypokalemia: Patient gently hydrated with IV fluids. Sodium was 130 on admission. Potassium was 3.3 and this has been replaced. #History of chronic alcohol abuse with fatty liver * Patient drank about 30 cans of beer daily for [address] abdomen and pelvis showed enlarged fatty liver. * Last drink was about 2 weeks prior to admission so low risk for acute alcohol withdrawal. * Will monitor. #History of nicotine dependence: Counseled to quit. states he has not smoked recently because he has been deteriorating. DVT prophylaxis: lovenox. Disposition: To be discharged home with home hospice tomorrow. Hospital Course Operations None Procedures None Summary of Care Provided Minutes Spent on Discharge: 55 Hospital Course: Patient is a 62-year-old male with a past medical history as outlined was admitted via the ED on 02/09/2023 for worsening weakness and debility at home. 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 said he had not been receptive to seeking medical treatment. He had been getting thin and progressively weaker over the last year to the point where the patient was falling at home and was very debilitated. was unable to care for him so she brought him into the ED as he was becoming more weak and confused. said he had not drank any alcohol over the past few weeks due to his severe weakness. Was admitted and managed for severe debility and weakness as well as severe protein calorie malnutrition. Pelvic x-ray showed no evidence of fractures. Family requested hospice evaluation. Hospice evaluated patient and family opted to take patient home on home hospice. His CODE STATUS was changed to DNR CC. Patient was discharged home on home hospice on 02/11/2023. Patient was seen and examined prior to discharge. Patient remained very frail and weak. He had no active complaints. Review of systems otherwise negative. Physical Exam Const alert Constitutional Narrative: patient very frail, weak, cachectic, not communicative. Nutritional Appearance: cachectic HEENT normocephalic, head/scalp atraumatic, hearing grossly normal bilaterally, nasal mucous membranes and turbinates normal and moist oral mucous membranes Eyes PERRL and EOMs intact bilaterally Neck no lymphadenopathy and supple Lymph Lymphatic: no lymphadenopathy noted Resp Resp Narrative: diminished breath sounds bibasally, no wheezes or crackles. On room air. Cardio regular rate, regular rhythm, S1 normal heart sound, S2 normal heart sound, no murmurs and peripheral pulses 2+ throughout GI normal to inspection, nondistended, normoactive bowel sounds, soft to palpation, non-tender and non-distended Extremity Extremity Narrative: LLE erythematous, edematous, seeping. Bilateral UE erythematous and seeping also. Skin Skin Narrative: erythema on RLE and upper extremities. Neuro CN's II-XII intact bilaterally and no focal motor deficits Neuro Narrative: very frail, cachectic and weak. Motor Exam: general weakness Medical Records Data Medical Nutrition Assessment Dietitian: Malnutrition Criteria Met Start: 02/10/23 13:39 Freq: Status: Active Protocol: Document 02/10/23 13:39 AG (Rec: 02/10/23 13:39 AG Desktop) Nutrition Malnutrition Evidence of Malnutrition Exists Yes Malnutrition (severe): Chronic Evidenced By Suboptimal Energy Intake ( Severe),Weight Loss (Severe), Physical Changes (Severe) Clinical Problem Chronic Disease or Condition Related Malnutrition Etiology severe, chronic malnutrition related to inadequate energy intake Signs/Symptoms as evidenced by unintentional 31% wt loss, estimated PO intake meeting <75 % of estimated energy needs > 3 months, severe muscle wasting/ fat loss evident per physical exam in orbital, clavicle, and acromion areas, BMI 14.5 Status Active Problem Recommendation Dietitian Recommendations/Changes regular diet as tolerated Weight / BMI Weight Weight: 89 lb 15.178 oz Body Mass Index (BMI) 14.5 ABG / Lab / Microbiology Data 02/09/23 12:30 02/09/23 12:30 D/C Instructions Discharge Diet: No restrictions Discharge Activity: Return to Normal Activity Weight Bearing Status: Weight bearing as tolerated Call your doctor if you observe: Fever of 101 or Higher, Shortness of breath, Dizziness, Swelling in the ankles, Chest pain and Increased palpitations (irregular heartbeat) Meaningful Use Info Meaningful Use Diagnoses (Choose all that apply): None applicable Discharge Plan Admission Admit Date/Time: 02/09/23 14:41 Primary Reason for Your Visit: severe malnutrition, debility and failure to thr orlin Attending Provider: Sharona Patten Primary Care Provider: Care Physician,No Primary Consulting Providers: Adolfo Lopez Jodi; Caridad Orozco; Larissa Louie RF DESIGN ENGINEER; Joni Turner Discharge Orders/Prescriptions Referrals / Follow Up: Care Physician,No Primary [Primary Care Provider] - NOT,DEFINED [Non-Staff] - Disposition Disposition (needs filled in before D/C Order can be placed): Hospice in Home Charges/Coding Visit Charges Inpatient E&M: 97077 Disch Hosp >30min
--- NOTE | 2023-02-11 11:56 | NURSING ---
Attempted to reposition Isaias on his Rt side. Pt was more SOB laying on his Rt side and working hard to breath. This RN repositioned him back to his Lt side and no more distress and easy breathing, non labored. spo2 94% on 2L NC.
--- NOTE | 2023-02-11 12:45 | CASEMGMT ---
Addendum entered by Gertrudis Terry 02/11/23 13:31: Social Work Return call from Phyllis at [facility] and transportation has been arranged for 5pm pepper picker. Nursing updated. Phone call to pt's Yany and updated on transport time. [facility] Original Note: Social Work Discharge orders have been placed for pt to discharge home with hospice services. Discharge orders sent to [facility]. Phone call to [facility] and spoke to Kiana. DME has been delivered to pt's home and hospice is able to provide transportation. A transport time has not been arranged. Hospice to call nursing unit with pepper picker time once established. Phone call placed to pt Yany. Yany confirms plan for pt to return home and that DME has been delivered. SW explained transportation. SW to update pt's when time is established. Disposition: Home with hospice services [facility]
--- NOTE | 2023-02-11 14:07 | CHAPLAIN ---
Type of Pastoral Visit ___ Initial Visit _x__ Follow-up Visit ___ On-call Visit ___ General Patient Visit ___ Spiritual Assessment ___ Family Conference ___ Bereavement ___ Rapid Response ___ Code Blue ___ Other (describe below) Pastoral Care Referral From ___ Patient _x__ Family ___ Nurse ___ Physician ___ Director Of Search Engine Optimization ___ Body Finisher ___ Other (describe below) Sacrament/Intervention ___ Active listening ___ Anointing ___ Yarsani ___ Bereavement ___ Communion ___ Arlene exploration ___ ___ Life review ___ Prayer ___ Reconciliation ___ Sacrament of Sick ___ Supportive presence ___ Wedding _x__ Other (describe below) Pastoral Comments second day and second attempt made to visit; pt is curled up in position in bed; pt only opens his eyes during attempt to offer support and care; pt does not respond to any comments; prayer was given for patient and another note written for family members who may be arriving to hospital
--- NOTE | 2023-02-11 14:40 | NURSING ---
this RN rounded on pt and had oxygen off. spo2 was 76% on continous spo2. Pt was combative when this RN tried to put o2 via NC back on at first but then allowed for it to stay on. This nurse waiting in his room for about 5 min to make sure spo2 wnl and to make sure he kept his o2 on.
[2023-02-11] MEDS: LORazepam 2 MG/ML Syringe 1 MG IV (17:11)
== END 2023-02-11 17:10 | disposition hospice, home (50) | DRG 421 ==
LOC: ED 14:07 → MS3 14:56
PROVIDERS: Admitting Provider Hospitalist; Emergency Provider Emergency Medicine; Visit Provider Student in an Organized Health Care Education/Training Program
DX: R62.7 Adult failure to thrive (principal); E43 Unspecified severe protein-calorie malnutrition; J18.9 Pneumonia, unspecified organism; J44.9 Chronic obstructive pulmonary disease, unspecified; K76.0 Fatty (change of) liver, not elsewhere classified; F10.10 Alcohol abuse, uncomplicated; E87.1 Hypo-osmolality and hyponatremia; E87.6 Hypokalemia; M79.89 Other specified soft tissue disorders; R41.82 Altered mental status, unspecified; R53.81 Other malaise; Z87.891 Personal history of nicotine dependence; R09.02 Hypoxemia; Z68.1 Body mass index [BMI] 19.9 or less, adult; Y90.9 Presence of alcohol in blood, level not specified
CPT/HCPCS: 51702; 70450; 71045; 71275; 72125; 72170; 73110; 73630; 74177; 80048; 80076; 81001; 82077; 82550; 83605; 83690; 83735; 84484; 85025; 85610; 85730; 87040; 93005; 94762; 97802; 99285; 99406; J7030; Q9967; A4216; J3490